=== PATIENT | male | born 1945 | race Caucasian/White ===

== ENCOUNTER 2017-12-07 15:00 | Outpatient (RCR) | payer OTHER, SELFPAY ==
--- NOTE | 2017-11-17 17:03 | HP.PTEVAL_ITS ---
Patient's Visit Information ADELAIDA ROJAS is a 72 year old M referred to Physical Therapy by Out of Town Doctor GHANSHYAM with a diagnosis of CHRONIC NECK PAIN. C2-C5 FACET ARTHROPATHY. SEVERE C5-C7 DDD.. Date of Evaluation: 11/17/17 Physical Therapist: Love Demarco - Visit Plan Frequency: 2-3x /Week Duration: 4-6 Weeks Plan: THIS PATIENT APPEARS TO BE A GOOD CANDIDATE FOR DRY NEEDLING. DRY NEEDLING ASSESSMENT SCHEDULED WITH OZIEL NELSON DPT. THIS PATIENT ALSO APPEARS TO BE A GOOD CANDIDATE FOR A HOME CERVICAL TRACTION UNIT BUT RECOMMEND TRIAL OF MECHANICAL CERVICAL TRACTION IN CLINIC FIRST TO ASSESS RESPONSE AND APPROPRIATE SETTINGS FOR A HOME UNIT. TREATMENT TO ALSO INCLUDE ULTRASOUND, STM NEEDED, POSTURE CORRECTION/STRENGTHENING, INSTRUCTION IN APPROPRIATE BODY MECHANICS AND ACTIVITY MODIFICATIONS. CHESTER UE ROM, STRETCHING AND STRENGTHENING. HEP INSTRUCTION. PATIENT WILL BE OUT OF TOWN IN NOVEMBER. TRANSFER OF CARE TO OZIEL NELSON DPT AT THIS TIME. CASE CONFERENCE WITH OZIEL NELOSN TODAY. 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 TRAVEL ABOUT 50% OF THE TIME USUALY BY PLANE. TENNIS, SKIING, SAILIING, PHOTOGRAPY. Disability: NO. Present symptoms: CHESTER NECK PAIN R>L. Present since: ABOUT 9 MONTHS AGO. Pain Scale: WORST 6/10, LEAST 2/10. Currently: 2 /10. CONTINUING TO IMPROVE SLOWLY. Commenced as a result of: THINKS HE GOT TOO FAR BACK ON NECK ON PILATES EQUIPMENT BUT IT DIDN'T HURT AT THE TIME. Symptoms at onset: SAME. Worse: PROLONGED READING, LOOKING AT COMPUTER FOR PROLONGED PERIOD OF TIME. TURNING WRONG IN BED, TURNING NECK DRIVING. Better: ERECT POSTURE. CHANGING POSITION OF NECK. SLEEPIING WITH HEATING PAD SOMETIMES. Disturbed sleep: A LITTLE BIT BUT GETTING BETTER. Previous history /Previous treatment: NO PRIOR HISTORY OF NECK PAIN OR TREATMENTS INCLUDING NO CHIRO, NO SX AND NO INJECTIONS. ABOUT 6 OR 7 NECK TREATMENTS BY CHIROPRACTOR THAT HELPED A LITTLE BIT BUT THEN STOPPED HELPING. HAS ALSO HAD MASSAGE THERAPY WHICH HAS HELPED. Dizziness: NO. Tinnitis: NO. Nausea: NO. Difficulty Swollowing: NO. Gait: NORMAL. Accidents: NO. Unexplained weight loss: NO. Imaging: LAST WEEK HAD CERVICAL X-RAYS OUT STATE - SEE MD DIAGNOSIS. PMH: SCOLIOSIS. *PACEMAKER* ON BLOOD THINNER. PROSTATE CANCER DX' D 3 YEARS AGO AND TREATED WITH RADIOACTIVE SEEDS - SOME URINARY DYSFUCNTION. HIGH CHOLESTEROL. TREATED RECENTLY FOR BLOOD INFECTION - HAS CLEARED UP BUT WAS HOSPITALIZED X 5 DAYS JUN 2017. - Objective Sitting Posture: POOR. FORWARD HEAD AND ROUNDED SHOULDERS. Active Correction of posture: BETTER. Other Observations: INDEP GAIT INTO PT WITHOUT ANY ASSISTIVE DEVICES. INDEP TRANSFERS SIT TO STAND AND REVERSE. ALSO INDEP SIT TO SUPINE AND REVERSE. Motor deficit: CHESTER UE'S GROSSLY 5/5 WITH MMT'ING IN AVAILABLE ROM. 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 PATIENT IS RIGHT HAND DOMINANT. Sensory deficit: CHESTER UE LIGHT TOUCH SENSATION IS INTACT AND SYMMETRICAL. ROM deficit: CHESTER UE ROM WFL BUT WITH APPROXIMATELY 20% ROM DECREASE IN SHOULDERS. Reflexes: CHESTER UE'S 2/2. Dural Signs: NEGATIVE CHESTER UE'S. Cervical Mvmt Loss: Flex: NIL. Pro: NIL. Ext: BRITTNY. Ret: BRITTNY. RSB: MOD. LSB: BRITTNY. R Rot: MOD. L Rot: MOD BUT MORE RESTRICTED THAN LEFT ROTATION. Postural strength: FAIR. Palpation: NO ACUTE TENDERNESS WITH PALPATION OF CERVICAL SPINE OR UPPER THORACIC SPINE. HE HAS INCREASED MUSCLE TONE/GUARDING OF CHESTER CERVICAL MUSCULATURE. OTHER: CERVICAL DISTRACTION TESTING RESULTS IN IMMEDIATE REPORTS OF DECREASED PAIN/STIFFNESS IN NECK AND DOES NOT PROVOKE ANY UE SX'S. THIS PATIENT IS VERY PLEASANT AND COOPERATIVE TO WORK WITH. - Goals Goal 1:: DECREASE C/O NECK PAIN Goal Time Frame: 4-6 Weeks Goal 2:: IMPROVE WORK (COMPUTER), PERSONAL CARE, READING, DRIVING AND RECREATIONAL FUNCTION. Goal Time Frame: 4-6 Weeks Goal 3:: INSTRUCT IN PROPHYLAXIS Goal Time Frame: 4-6 Weeks - Rehabilitation Potential Rehabilitation Potential: Good - Anticipated Interventions Patient/Client Instruction: Educate patient on: Condition, Plan of Care, Risk Factors, Benefits of Fitness Program For the Purpose of:: To improve self management Therapeutic Exercise to Include: Strength training, Body mechanics, Postural training, Flexibilty training, Active ROM, Scapular Strength/Stabilization For the Purpose of:: To improve ability of physical actions for home/community/ work/leisure Manual Therapy Techniques to Include: Functional dry needling, Soft tissue mobilization For the Purpose of:: To decrease pain, To decrease swelling/inflammation, To increase ROM Ultrasound (thermal/non thermal): Yes Intermittent cervical traction: Yes - STARTING WITH 15 TO 16 LBS TOLERATED. 8 LBS OFF. 45 SEC ON/30 SEC OFF. For the Purpose of:: To decrease pain, To decrease swelling/inflammation, To increase ROM Thank you for the opportunity to evaluate your patient. For Medicare and Medicare HMO plans, please review the plan of care and approve it. It will need to be FAXED BACK to us at [phone] for Medicare purposes. Please let me know if there are questions or concerns regarding this plan of care. Physician Signature: Date:
--- NOTE | 2017-12-07 15:57 | HP.PTREVAL_ITS ---
MICHELE GRANADOS, It has been my pleasure to treat ADELAIDA ROJAS over the last 9 visits for CHRONIC NECK PAIN. C2-C5 FACET ARTHROPATHY. SEVERE C5-C7 DDD.. Please see the progress note below for an update on the physical therapy plan of care! Subjective: Patient feels that he has some tools to continue exercise and such on his own- he is traveling for 3 weeks so he will see what happens. Played tennis today- no problems in his neck Objective/Function: Patient was able to complete without incidence. No increase in s/s throughout session. hold until return from vacation Plan Plan: Hold Goals Goal 1:: DECREASE C/O NECK PAIN Goal Time Frame: 4-6 Weeks Goal Progress: Progressing Goal 2:: IMPROVE WORK (COMPUTER), PERSONAL CARE, READING, DRIVING AND RECREATIONAL FUNCTION. Goal Time Frame: 4-6 Weeks Goal Progress: Progressing Goal 3:: INSTRUCT IN PROPHYLAXIS Goal Time Frame: 4-6 Weeks Goal Progress: Progressing Anticipated Interventions Patient/Client Instruction: Educate patient on: Condition, Plan of Care, Risk Factors, Benefits of Fitness Program For the Purpose of:: To improve self management Therapeutic Exercise to Include: Strength training, Body mechanics, Postural training, Flexibilty training, Active ROM, Scapular Strength/Stabilization For the Purpose of:: To improve ability of physical actions for home/community/ work/leisure Manual Therapy Techniques to Include: Functional dry needling, Soft tissue mobilization For the Purpose of:: To decrease pain, To decrease swelling/inflammation, To increase ROM Ultrasound (thermal/non thermal): Yes Intermittent cervical traction: Yes - STARTING WITH 15 TO 16 LBS TOLERATED. 8 LBS OFF. 45 SEC ON/30 SEC OFF. For the Purpose of:: To decrease pain, To decrease swelling/inflammation, To increase ROM Please do not hesitate to contact me at [phone] by phone or Fax: if you have questions or concerns regarding this new plan of care! Sincerely, Ariella Telles
--- NOTE | 2018-05-24 11:17 | HP.PT.NRP ---
HP - Discharge Summary (1) - Patient Information ADELAIDA ROJAS was seen in my office for initial evaluation on 11/17/17. The following Plan of Care was established for this patient: Initial Frequency: 2-3x /Week Initial Duration: 4-6 Weeks - Anticipated Interventions Patient/Client Instruction: Educate patient on: Condition, Plan of Care, Risk Factors, Benefits of Fitness Program For the Purpose of:: To improve self management Therapeutic Exercise to Include: Strength training, Body mechanics, Postural training, Flexibilty training, Active ROM, Scapular Strength/Stabilization For the Purpose of:: To improve ability of physical actions for home/community/work/leisure Manual Therapy Techniques to Include: Functional dry needling, Soft tissue mobilization For the Purpose of:: To decrease pain, To decrease swelling/inflammation, To increase ROM Ultrasound (thermal/non thermal): Yes Intermittent cervical traction: Yes - STARTING WITH 15 TO 16 LBS TOLERATED. 8 LBS OFF. 45 SEC ON/30 SEC OFF. For the Purpose of:: To decrease pain, To decrease swelling/inflammation, To increase ROM This patient was last seen in our office . Pertinent comments regarding their Physical therapy will appear below: d/c- new V# At this point I will be discontinuing this patient from physical therapy. I would be happy to see this patient again in the future if found appropriate by the physician. Thank you! Ariella Telles
== END 2017-12-07 19:00 | disposition home or self-care (01) ==
LOC: PT 15:00
PROVIDERS: Family Provider Family Medicine; PCP Family Medicine
DX: M50.322 Other cervical disc degeneration at C5-C6 level (principal); M46.92 Unspecified inflammatory spondylopathy, cervical region
CPT/HCPCS: 97012; 97035; 97110; 97140; 97162; 97530

== ENCOUNTER 2018-04-18 09:00 | Outpatient (RCR) | payer OTHER, SELFPAY ==
--- NOTE | 2018-03-28 08:33 | HP.PTEVAL ---
Patient's Visit Information ADELAIDA ROJAS is a 72 year old M referred to Physical Therapy by Hany oRbins MD with a diagnosis of LBP. Date of Evaluation: 03/28/18 Physical Therapist: Ariella Telles - Visit Plan Frequency: 2x /Week Duration: 2 Weeks Plan: Focus on core s/s and dry needling as modality - Subjective Subjective: Patient reports having scoliosis and has episodic issues for decades- twist it or step down funny and it goes out- has been able to managae- back brace while skiing- If he can get ice on it right away. the pain is always the lower right side. Has had healthcare science specialist which helps a lot. About 5 weeks ago he was on the boat he was crawling around and twisting- felt no sudden pain but had it the next day. Had massages and saw Dr. Renner 2x last apt was about 3 weeks ago. Can't stand very long without right sided back pain and quad pain. Was doing exercises (stretching) and felt something give and started to get better but is all the way better. Has gotten better in the past week. Played tennis for 90 minutes yesterday and had little pain. Describes the pain as dull and achy- does not radiate past the knee. Has not had recent x-rays. Mild numbness that comes and goes. 2 weeks ago he could not stand for more than 5 min without pain but now he does not have a problem. Iced after tennis yesterday- laying on his back. Has more pain in the hours afterwards. Feels more stiffness- Is currently doing piriformis stretch on his back 30 sec x 3 which helps to move things around. Feels that he needs to get stronger. Feels he is 75% through this flareup. No N/T in the toes. Active- very- tennis, boating, skiing, etc. PMH: SCOLIOSIS. *PACEMAKER* ON BLOOD THINNER. PROSTATE CANCER DX'D 3 YEARS AGO AND TREATED WITH RADIOACTIVE SEEDS - SOME URINARY DYSFUCNTION. HIGH CHOLESTEROL. TREATED RECENTLY FOR BLOOD INFECTION - HAS CLEARED UP BUT WAS HOSPITALIZED X 5 DAYS JUN 2017. (per previous evaluation by PT GIN-NO CHANGES PER PT REPORT) - Objective Posture: FH, RS- can correct but does not maintain- sitting mild slumping in chair. Observation: scoliotic curve of the spine-. Standing lumbar ROM: flexion: hands to knees- secondary to tight hamstrings, extn: decreased by 50%, SB: WFL, Rotation: WFL- Hip/Knee/ankle: WNL. Strength: Ankle/Knee: 5/5, Hip: 4+/5 throughout- Core: fair minus. Flexibility: HS: severe, gastroc: moderate. Palpation: tender along right paraspinals. Sensation/Reflex: wnl. Special Test: Barbara:negative - Goals Goal 1:: Patient will be I with HEP and progression Goal Time Frame: 4-6 Weeks Goal 2:: Patient will maintain proper posture t/o tx session to demo increased core s/s Goal Time Frame: 4-6 Weeks Goal 3:: Patient will report 0/10 pain for 1 week Goal Time Frame: 4-6 Weeks - Rehabilitation Potential Physical Therapy Diagnosis: Patient presents wtih hypomobility- he has decreased ROM, core s/s and muscular endurance leading to poor posture and increased pain Rehabilitation Potential: Fair - Anticipated Interventions Patient/Client Instruction: Educate patient on: Benefits of Fitness Program For the Purpose of:: To increase tolerance to activity/condition/position Therapeutic Exercise to Include: Strength training, Endurance training, Balance training, Agility training, Body mechanics, Postural training, Flexibilty training, Dynamic Lumbar Stabilization For the Purpose of:: To improve muscle performance and motor function Manual Therapy Techniques to Include: Functional dry needling Thank you for the opportunity to evaluate your patient. For Medicare and Medicare HMO plans, please review the plan of care and approve it. It will need to be FAXED BACK to us at [phone] for Medicare purposes. Please let me know if there are questions or concerns regarding this plan of care. Physician Signature: Date:
--- NOTE | 2018-09-21 09:03 | HP.PT.NRP ---
HP - Discharge Summary (1) - Patient Information ADELAIDA ROJAS was seen in my office for initial evaluation on 03/28/18. The following Plan of Care was established for this patient: Initial Frequency: 2x /Week Initial Duration: 2 Weeks - Anticipated Interventions Patient/Client Instruction: Educate patient on: Benefits of Fitness Program For the Purpose of:: To increase tolerance to activity/condition/position Therapeutic Exercise to Include: Strength training, Endurance training, Balance training, Agility training, Body mechanics, Postural training, Flexibilty training, Dynamic Lumbar Stabilization For the Purpose of:: To improve muscle performance and motor function Manual Therapy Techniques to Include: Functional dry needling This patient was last seen in our office . Pertinent comments regarding their Physical therapy will appear below: Patient is appropriate for d/c At this point I will be discontinuing this patient from physical therapy. I would be happy to see this patient again in the future if found appropriate by the physician. Thank you! Ariella Telles DPT
== END 2018-04-18 19:00 | disposition home or self-care (01) ==
LOC: PT 09:00
PROVIDERS: Family Provider Family Medicine; PCP Family Medicine; Visit Provider Family Medicine
DX: M54.41 Lumbago with sciatica, right side (principal)
CPT/HCPCS: 97110; 97140; 97161; 97530

== ENCOUNTER 2018-12-20 15:30 | Outpatient (RCR) | payer OTHER, SELFPAY ==
--- NOTE | 2018-12-02 15:35 | HP.PTEVAL ---
Patient's Visit Information ADELAIDA ROJAS is a 73 year old M referred to Physical Therapy by RADHA PABON with a diagnosis of Lumbar spondylosis. Date of Evaluation: 12/02/18 Physical Therapist: Matthew Ware, PT, CYNTHIA, SCS, CSCS - Visit Plan Frequency: 2x /Week Duration: 3 Weeks Plan: 2xweek for 3 weeks. patient will be traveling extensively - Subjective Findings: I started to have low back pain about 8 months ago and saw Ariella who did dry needling. My most recent flair up was about 3 months and I was in [place] so I saw Dr Mullen's PA. She took xrays and felt I had somme degenrative changes from my scoloisis. I've been in [place] for a couple of weeks and the therapist there gave me some exercise that have seemed to help - Objective Left LLD 1/4 left side bending right rotation for scolosis. Negatice tensions signs with SLR or slump. DTR wfls except r achilles appear down at 2/3 compared to left. No signifcant weakness noted - Goals Goal 1:: Understanding the rotation and compression secondary to his scolosis. Goal Time Frame: 1 Week Goal 2:: Return demo HEP Goal Time Frame: 1 Week Goal 3:: Initiate a dynamic stabilzation program Goal Time Frame: 2-4 Weeks Goal 4:: Place heel lift in left shoe - Rehabilitation Potential Physical Therapy Diagnosis: Scolosis with R referral L2-3 thigh region Rehabilitation Potential: Good - Anticipated Interventions Patient/Client Instruction: Educate patient on: Condition, Plan of Care For the Purpose of:: To decrease pain, To increase ROM, To improve ability to perform ADL's Therapeutic Exercise to Include: Strength training, Endurance training, Body mechanics, Postural training, Flexibilty training For the Purpose of:: To decrease pain, To decrease swelling/inflammation, To increase ROM, To improve ability to perform ADL's Manual Therapy Techniques to Include: Mobilization For the Purpose of:: To increase ROM Ultrasound (thermal/non thermal): Yes Pelvic traction supine: Yes For the Purpose of:: To increase flexibility/ROM Thank you for the opportunity to evaluate your patient. For Medicare and Medicare HMO plans, please review the plan of care and approve it. It will need to be FAXED BACK to us at [phone] for Medicare purposes. For Medicare only, by signing this I certify the plan of care. Please let me know if there are questions or concerns regarding this plan of care. Physician Signature: Date:
== END 2018-12-20 19:00 | disposition home or self-care (01) ==
LOC: PT 15:30
PROVIDERS: Family Provider Family Medicine; PCP Family Medicine
DX: M47.896 Other spondylosis, lumbar region (principal)
CPT/HCPCS: 97035; 97110; 97162

== ENCOUNTER 2019-09-15 08:26 | Day surgery (SDC) | payer OTHER, SELFPAY ==
--- NOTE | 2019-07-18 05:55 | HP_ITS ---
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 Is patient in pain?: No Allergies No Known Allergies Allergy (Verified 07/18/19 14:50) Medications apixaban 5 mg tablet 5 mg PO BID 09/16/17 [History Confirmed 07/18/19] metoprolol succinate ER 100 mg tablet,extended release 24 hr 100 mg PO .QD tab 09/16/17 [History Confirmed 07/18/19] mirabegron ER 25 mg tablet,extended release 24 hr 25 mg PO QDAY 09/16/17 [History Confirmed 07/18/19] pantoprazole 40 mg tablet,delayed release 40 mg PO QDAY 09/16/17 [History Confirmed 07/18/19] fluticasone propionate 50 mcg/actuation nasal spray,suspension 50 mcg INTRANASAL QDAY PRN g 09/22/17 [History Confirmed 07/18/19] lutein 20 mg capsule 20 mg PO .QOD cap 09/22/17 [History Confirmed 07/18/19] tamsulosin 0.4 mg capsule 0.4 mg PO QDAY cap 09/22/17 [History Confirmed 07/18/19] tadalafil 5 mg tablet 5 mg PO QDAY tab 04/13/18 [History Confirmed 07/18/19] rosuvastatin 5 mg tablet 5 mg PO .M/W/F tab 03/16/19 [History Confirmed 07/18/19] [facility] Medical History Stenosis of left carotid artery (Chronic) Tachy-garth syndrome (Chronic) Hyperlipidemia (Chronic) Paroxysmal atrial fibrillation (Chronic) Right bundle branch block (Chronic) GERD (gastroesophageal reflux disease) (Acute) Mccallum esophagus (Chronic) Obstructive sleep apnea (Chronic) Prostate cancer (Chronic) Bacteremia due to Enterococcus (Resolved ~07/10/17) Surgical History Presence of cardiac pacemaker (Chronic 07/14/13) Social History (Updated 07/18/19 @ 18:01 by Hair Kate MD) Smoking Status: Never smoker alcohol intake: current alcohol intake frequency: holidays/special occasions only HPI HPI HPI: ADELAIDA ROJAS, is a 74 M who presents to the office today for HPI HPI Surgical H&P: Yes HPI: ADELAIDA ROJAS, is a 74 M who presents to the office today for surgical consultation regarding a esophagogastroduodenoscopy and follow-up of Mccallum's esophagus. The patient is referred by Dr. Hany Robins and Lainey Diaz CNP and a written copy of my surgical consult recommendations will be returned to them. The patient states that he has known that he has had Mccallum's for at least 10 to 12 years. He has been on pantoprazole the entire time. The patient states that he is up-to-date with his colonoscopy. His most recent upper endoscopy was August 13, [address] Rose.. Short segment Mccallum's was identified biopsies. A few fundic gland polyps identified. The duodenum was felt to be normal. The distal esophagus was consistent with Mccallum's negative for dysplasia. Of interest is that the patient has now been on pantoprazole for an extended period of time. There is a suggestion that he has a more silent type of reflux. He does have some hoarseness but he feels that secondary to sinus problems. He still is physically very active and plays tennis and snow skis. He does have a pacemaker in place. He is on Eliquis anticoagulation for paroxysmal atrial flutter. He has also had non-sustained supraventricular tachycardia He has a mild degree of renal insufficiency. He denies chest pain. No shortness of breath. No acute change of bowel habits. No bright red blood per rectum or melena. No abdominal pain. Habits are negative for tobacco. He is on Eliquis twice daily. ROS General General: No weight change, appetite, fatigue, colon cancer, breast cancer or weakness HEENT HEENT: No difficulty swallowing, eye injury, eye surgery, swollen glands or hoarseness Endo Endocrine: No thyroid disease, diabetes mellitus, thyroid cancer, Hair loss, heat intolerance or cold intolerance Skin Skin: No rash or changing moles Breast Breast: No left breast lump, right breast lump, nipple discharge, breast pain, abnormal mammogram, abnormal US or breast enlargement Musc Musculoskeletal: No back problems, arthritis, rheumatoid arthritis, gout or joint pain Cardio Cardiovascular: Yes pacemaker and atrial fibrillation; no murmur, heart disease, high blood pressure, heart attack, heart stent, palpitations, shortness of breat with exertion or chest pain Psych Psychiatric: No depression, anxiety or hearing voices Resp Respiratory: No shortness of breath, Yes sleep apnea, No cough, No COPD, No asthma, No emphysema, No wheezing Gastro Gastrointestinal: No abdominal pain, No nausea or vomiting, No diarrhea, No constipation, No blood in stool, No acid reflux, No hemorrhoids, No ulcers, No gallbladder problem, No black,tarry stools Missael Hematologic: Yes blood thinners, No blood disorders, No bleeding, No anemia, No blood clots Neuro Neurologic: No system reviewed and no additional complaints, except as docu, No as per HPI, No abnormal walking, No abnormal hearing, No abnormal movements, No abnormal speech, No behavioral changes, No burning sensations, No confusion, No seizure-like activity, No unsteadiness, No dizziness, No localized weakness, No frequent falls, No headache(s), No lack of coordination, No loss of vision, No memory loss, No numbness, No other visual disturbances, No radiating pain, No restless legs, No sensory deficit, No fainting, No tingling, No tremor(s), No weakness, No other Exam Const General: cooperative, healthy appearing, comfortable, no acute distress Nutritional Appearance: average body habitus Orientation: alert, awake, oriented x3 HENMT Head: normal to inspection Chest Chest palpation & inspection: normal inspection of the chest Breast Palpation: No nipple discharge Other: Left upper chest indwelling pacemaker Resp Effort & Inspection: normal respiratory effort Auscultation: clear to auscultation bilaterally Cardio Rate: regular rate Rhythm: regular rhythm Heart Sounds: no murmurs GI Other: Soft, nontender, normal bowel sounds, not expansile, Skin General: no rashes or lesions noted Neuro Cognition: normal cognition Extrem General: no calf tenderness bilaterally Psych Affect: normal affect Assessment & Plan Problems 1. History of Mccallum's esophagus Z87.19 Plan 74-year-old gentleman with a history of Mccallum's esophagus with no evidence of dysplasia. Ongoing proton pump inhibitor therapy for 10 to 12 years. Some suggestion of a degree of silent reflux. I am recommending to him a esophagogastroduodenoscopy with anticipated biopsies. I did discuss with him potential of placing a Stewart pH probe. I briefly discussed with him long-term concept of considering a surgical reflux procedure. I discussed with him current medical thoughts of weaning patients off of proton pump inhibitors. He has had an opportunity to ask and have questions answered. He is still working and has quite a busy schedule. He will notify us when he would like to proceed with the endoscopy. He will additionally notify us if he would like to have a pH probe placed at that time. We will need to have him hold his Eliquis for 48 hours prior to the endoscopy. I very much appreciate the kind opportunity of assisting with surgical care CC: Lainey Diaz CNP and Dr. Hany Kate M.D., F.A.C.S. Coding Level of Care Code 36584 Diagnoses History of Mccallum's esophagus Z87.19 07/18/19 180 <Electronically signed by Hair bonilla MD> Date _ Hair Kate MD History and physical reviewed with no changes.
[2019-07-18 14:51] VITALS: BMI 28.8
[2019-09-15 08:52] VITALS: BP 140/87; PULSE 55; RESP 16; TEMP 36.6; O2SAT 96; BMI 28.9
[2019-09-15] MEDS: Lactated Ringers 1,000 ML 100 ML IV (09:11)
--- NOTE | 2019-09-15 09:30 | EGD_PTH ---
PATIENT: ADELAIDA ROJAS LOC: EN U#:[id number] AGE/SX: 74/M ROOM: RE09/15/[address]: Dr. Hair Kate MD : 1945 BED: DIS: 09/15/2019 SPEC #: [id number] RECD: 09/15/19 11:28 STATUS: EDMUND IVETTE #: [id number] IRISH: 09/15/19 09:[address]: Hair Kate DEPT: SURGICAL PATHOLOGY RECD BY: Daiana Grider ENTERED: 09/15/19 11:56 SP TYPE: EGD BIOPSY OT DR: Dr. Hany Robins MD Tissues: A - Duodenum, NOS B - Gastric mucous membrane C - POLYP D - Esophagus, NOS Procedures: Special Stain Group II Surgery Specimen Level IV Alcian Blue/PAS (control) HEADER OPERATION: EGD ([facility] [place]) PRE-OP DIAGNOSIS: History Webster's esophagus TISSUE SUBMITTED: A. Duodenal biopsy, B. Antrum biopsy for H. pylori and path, C. Greater curvature polyp, D. Distal esophagus biopsy MICROSCOPIC DIAGNOSIS A. Duodenum, biopsy: Minimal nonspecific chronic inflammation. See comment. B. Gastric antrum, biopsy: Mild chronic gastritis. See comment. C. Gastric polyp, greater curvature, biopsy: Fundic gland polyp. D. Distal esophagus, biopsy: Gastroesophageal junctional mucosa with Webster's esophagus. No evidence of dysplasia. See comment. AM:ayesha 09/18/19 COMMENT A. There is no flattening of villi present. B. The results of immunohistochemistry for Helicobacter pylori will be reported separately ([id number]). D. Alcian blue/PAS stain with matched control supports the above diagnosis. Immunohistochemistry ([id number]) supports the above diagnosis. MICROSCOPIC DESCRIPTION Slides are reviewed. GROSS DESCRIPTION A - Received in fixative is one container labeled with the patient's name and designated duodenal biopsy. The specimen consists of one irregular fragment of light pinto soft tissue that measures 0.3 x 0.3 x 0.1 cm. The specimen is totally submitted in one cassette. B - Received in fixative is one container labeled with the patient's name and designated antral biopsy. The specimen consists of multiple irregular fragments of light pinto soft tissue that in aggregate measure 0.5 x 0.3 x 0.1 cm. The specimen is totally submitted in one cassette. C - Received in fixative is one container labeled with the patient's name and designated greater curvature polyp. The specimen consists of one irregular fragment of light pinto soft tissue that measures 0.5 x 0.3 x 0.1 cm. The specimen is totally submitted in one cassette. D - Received in fixative is one container labeled with the patient's name and designated distal esophagus biopsy. The specimen consists of multiple irregular fragments of light pinto soft tissue that in aggregate measure 2 x 1 x 0.1 cm. The specimen is totally submitted in one cassette. / SJ:ayesha 09/15/19 TC: CPT: 75672 x4, 48214
--- NOTE | 2019-09-15 09:30 | IMM_PTH ---
PATIENT: ADELAIDA ROJAS LOC: EN U#:[id number] AGE/SX: 74/M ROOM: RE09/15/[address]: Dr. Hair Kate MD : 1945 BED: DIS: 09/15/2019 SPEC #: [id number] RECD: 09/15/19 13:33 STATUS: EDMUND REQ #: [id number] IRISH: 09/15/19 09:[address]: Hair Kate DEPT: IMMUNOHISTOCHEMISTRY RECD BY: Haley Bruno ENTERED: 09/15/19 13:33 SP TYPE: IMMUNO OTHR DR: Dr. Hany Robins MD Tissues: B - Stomach, NOS D - Esophagus, NOS Procedures: H Pylori (initial) P53 (initial) KI-67 (add) PHYSICIAN & INSTITUTION [place] [address] SPECIMEN INFORMATION: Tissue Source: B - Antrum biopsy, D - Distal esophagus biopsy Clinical Info: History Webster's esophagus Specimen Number: [id number] B & D CPT code: 38033 x2, 74437 METHODOLOGY: Deparaffinized sections of prefer/formalin-fixed tissue or PAP/DQ stained slides are incubated with monoclonal/polyclonal antibodies/oligonucleotide probes. Localization is made via biotin free immunoperoxidase method. Appropriate controls are performed and reacted as expected. Results on target cell population are indicated in the following table: RESULTS: ANTIBODY / CLONE RESULT Block B H Pylori (polyclonal) negative Block D P53 (DO-7) negative Ki-67 (30-9) positive, low These tests were developed and their performance characteristics determined by [facility]. They may not have been cleared or approved by the U.S. Food and Drug Administration. The FDA has determined that such clearance or approval is not necessary. The above immunohistochemical/dualISH markers are ordered and reviewed by the pathologist. INTERPRETATION: B. Antrum biopsy: Negative for Helicobacter pylori organisms. D. Distal esophagus, biopsy: No evidence of dysplasia. AM:ayesha 09/19/19
[2019-09-15 10:10] VITALS: BP 140/87; BP 88/51; PULSE 50; RESP 16; TEMP 36.1; O2SAT 94
[2019-09-15 10:15] VITALS: BP 140/87; BP 97/60; PULSE 52; RESP 16; O2SAT 94
[2019-09-15 10:20] VITALS: BP 108/60; BP 140/87; PULSE 59; RESP 16; O2SAT 96
[2019-09-15 10:25] VITALS: BP 120/82; BP 140/87; PULSE 60; RESP 16; TEMP 36.1; O2SAT 97
[2019-09-15 10:53] VITALS: BP 140/87
--- NOTE | 2019-09-18 14:18 | OP.EGD_ITS ---
Patient Name: Hawk Sandoval Procedure Date: 09/15/2019 9:28 AM Date of : 1945 Age: 74 Procedure: Upper GI endoscopy Indications: Surveillance for malignancy due to personal history of Webster's esophagus Providers: Hair Kate MD Referring MD: Hany Robins MD Medicines: See the Anesthesia note for documentation of the administered medications Complications: No immediate complications. Procedure: Pre-Anesthesia Assessment: - Prior to the procedure, a History and Physical was performed, and patient medications and allergies were reviewed. The patient's tolerance of previous anesthesia was also reviewed. The risks and benefits of the procedure and the sedation options and risks were discussed with the patient. All questions were answered, and informed consent was obtained. Prior Anticoagulants: The patient has taken Eliquis (apixaban), last dose was 2 days prior to procedure. ASA Grade Assessment: II - A patient with mild systemic disease. After reviewing the risks and benefits, the patient was deemed in satisfactory condition to undergo the procedure. After obtaining informed consent, the endoscope was passed under direct vision. Throughout the procedure, the patient's blood pressure, pulse, and oxygen saturations were monitored continuously. The gastroscope was introduced through the mouth, and advanced to the second part of duodenum. The upper GI endoscopy was accomplished without difficulty. The patient tolerated the procedure well. Scope In: 9:45:52 AM Scope Out: 10:05:40 AM Total Procedure Duration Time 0 hours 19 minutes 48 seconds Findings: Diffuse mildly erythematous mucosa without bleeding was found in the gastric antrum. Biopsies were taken with a cold forceps for histology. Multiple sessile polyps with no bleeding and no stigmata of recent bleeding were found in the entire examined stomach. The polyp was removed with a cold biopsy forceps. Resection and retrieval were complete. The examined duodenum was normal. Biopsies were taken with a cold forceps for histology. A medium-sized hiatal hernia was present. The Z-line was irregular and was found 40 cm from the incisors. The GRIFFIN capsule with delivery system was introduced through the mouth and advanced into the esophagus, such that the GRIFFIN pH capsule was positioned 32 cm from the incisors, which was 6 cm proximal to the GE junction. The GRIFFIN pH capsule was then deployed and attached to the esophageal mucosa. The delivery system was then withdrawn. Endoscopy was utilized for probe placement and diagnostic evaluation. Impression: - Erythematous mucosa in the antrum. Biopsied. - Multiple gastric polyps. Resected and retrieved. - Normal examined duodenum. Biopsied. - Medium-sized hiatal hernia. - Z-line irregular, 40 cm from the incisors. - The GRIFFIN pH capsule was deployed. Recommendation: - Discharge patient to home. - Resume previous diet. - Resume Eliquis (apixaban) at prior dose in 2 days. - Return to my office in 1 week. Procedure Code(s): --- Professional --- 12029, Esophagogastroduodenoscopy, flexible, transoral; with biopsy, single or multiple 35870, Esophagus, gastroesophageal reflux test; with mucosal attached telemetry pH electrode placement, recording, analysis and interpretation Diagnosis Code(s): --- Professional --- K31.89, Other diseases of stomach and duodenum K31.7, Polyp of stomach and duodenum K22.70, Webster's esophagus without dysplasia K44.9, Diaphragmatic hernia without obstruction or gangrene K22.8, Other specified diseases of esophagus CPT copyright 2017 [employer]. All rights reserved. The codes documented in this report are preliminary and upon construction job cost estimator review may be revised to meet current compliance requirements. Hair Kate MD 09/15/2019 10:16:09 AM This report has been signed electronically. Number of Addenda: 0 Note Initiated On: 09/15/2019 9:28 AM
--- NOTE | 2019-09-18 14:18 | OP.CCLET_ITS ---
09/18/2019 Hany Robins MD Re : Upper GI endoscopy procedure for Hawk Sandoval Dear Dr. Robins This procedure was performed on Sunday, September 15, 2019. My impressions and recommendations are as follows: Impressions : - Erythematous mucosa in the antrum. Biopsied. - Multiple gastric polyps. Resected and retrieved. - Normal examined duodenum. Biopsied. - Medium-sized hiatal hernia. - Z-line irregular, 40 cm from the incisors. - The GRIFFIN pH capsule was deployed. Recommendations : - Discharge patient to home. - Resume previous diet. - Resume Eliquis (apixaban) at prior dose in 2 days. - Return to my office in 1 week. My findings are described in the full procedure note, which is enclosed. If I can be of further assistance, please feel free to contact me at Doctor phone number(s): Work: . Sincerely, Hair Kate MD 09/15/2019 10:16:09 AM This report has been signed electronically.
== END 2019-09-15 11:19 | disposition home or self-care (01) ==
LOC: EN 08:28 → AC 08:29
PROVIDERS: Family Provider Family Medicine; PCP Family Medicine; Referring Provider Family Medicine; Visit Provider Surgery
PROC: (CPT 43239; principal; 2019-09-15 09:25)
DX: Z12.9 Encounter for screening for malignant neoplasm, site unspecified (principal); K31.7 Polyp of stomach and duodenum; K29.50 Unspecified chronic gastritis without bleeding; K21.9 Gastro-esophageal reflux disease without esophagitis; K31.89 Other diseases of stomach and duodenum; K44.9 Diaphragmatic hernia without obstruction or gangrene; K22.70 Barrett's esophagus without dysplasia; K22.8 Other specified diseases of esophagus; I47.1 Supraventricular tachycardia; I48.0 Paroxysmal atrial fibrillation; E78.5 Hyperlipidemia, unspecified; G47.33 Obstructive sleep apnea (adult) (pediatric); Z79.01 Long term (current) use of anticoagulants; Z79.899 Other long term (current) drug therapy; Z87.19 Personal history of other diseases of the digestive system; Z95.0 Presence of cardiac pacemaker
CPT/HCPCS: 43239; 91035; 88305; 88313; 88341; 88342; J7120

== ENCOUNTER 2020-06-04 10:55 | Outpatient (CLI) | payer OTHER, SELFPAY ==
[2020-06-03 13:44] VITALS: BMI 29.7
[2020-06-03 16:32] LABS: Anion Gap 4 (5-15); BUN 16 mg/dL (7-18); Calcium,Total 9.2 mg/dL (8.5-10.1); Chloride 106 mmol/L (98-107); Creatinine, Serum 1.46 mg/dL (0.70-1.30); EST Glomerular Filtration Rate 50 mL/min (>60); Est Glom Filt Rate - Afr Amer 61 mL/min (>60); Glucose 116 mg/dL (74-106); Sodium Level 139 mmol/L (136-145)
[2020-06-04 07:02] VITALS: BMI 29.7
--- NOTE | 2020-06-04 10:57 | ECHOTEE_ITS ---
Reason For Study: AFIB Medication SHANICE probe 6VT-D (SN [id number]) passed without difficulty. No complications were noted. Cetacaine Topical [place] given X4 orally. Versed 2 mg given slow IVP. Fentanyl 50 mcg given slow IVP. Performed a rapid injection of agitated mix of 9 cc saline and 1cc air to assess for atrial septal defect. Left Ventricle Normal LV size. Left ventricular systolic function is normal. The estimated ejection fraction is 60 %. No regional wall motion abnormalities noted. Right Ventricle Normal RV size. Normal systolic function. Atria Bubble contrast study negative for right to left interatrial shunt. Normal left atrium. No thrombus is detected in the left atrial appendage. Normal right atrium. Mitral Valve Normal mitral valve. Mild (1+) eccentric mitral valve insufficiency. Tricuspid Valve Normal tricuspid valve. Mild tricuspid valve insufficiency. Aortic Valve Trisinus/trileaflet aortic valve. Mild (1+) aortic valve insufficiency. Pulmonic Valve Normal pulmonic valve. Vessels Normal aortic root. Normal arch. The pulmonary artery is normal size. Pericardium No pericardial effusion. Interpretation Summary Normal LV size. Left ventricular systolic function is normal. The estimated ejection fraction is 60 %. Normal left atrium. No thrombus is detected in the left atrial appendage. Ordering Physician: Refugio Raygoza Referring Physician: ANSON LICEA Performed By: Genevieve Cai, RDCS, RVT
--- NOTE | 2020-06-04 12:53 | PCM.OP.PRO ---
Procedure Report Date of Procedure: 06/04/20 CONSCIOUS SEDATION REPORT DATE OF SERVICE: June 04, 2020 BRIEF HISTORY OF PRESENT ILLNESS: The patient is a 75-year-old male who presented to [facility] for an elective outpatient cardioversion due to underlying atrial fibrillation. Transesophageal echocardiogram was completed prior to the procedure today which revealed an ejection fraction of approximately 65%. The patient is systemically anticoagulated on Eliquis. He denies any previous anesthetic complications. He does have a known history of obstructive sleep apnea, for which he reports compliance with the use of nocturnal CPAP therapy. PHYSICAL EXAMINATION: VITAL SIGNS: Reviewed and were acceptable. GENERAL: The patient is a male, in no apparent distress, speaking in full sentences. HEENT: Normocephalic, atraumatic. Mucous membranes are moist and pink. Good mouth opening noted. Trachea is midline. CHEST: S1, S2 irregularly irregular. No murmurs, rubs or gallops were noted. LUNGS: Clear to auscultation bilaterally without appreciable wheezes, rales or rhonchi. ABDOMEN: Soft, nontender, nondistended. Positive bowel sounds. EXTREMITIES: There is no clubbing, cyanosis or edema. ASA Class: II DESCRIPTION OF PROCEDURE: After confirmation of informed consent, the patient's anesthesia plan was reviewed in detail. Propofol was chosen. Risks and benefits were reviewed and the patient agreed to proceed. At 1222, the patient was given 40 mg of propofol. The patient achieved an appropriate level of sedation and was given a 200 joule synchronized cardioversion by Dr. Raygoza at the bedside. This was successful in achieving normal sinus rhythm. The patient was monitored until 1233, at which time he reached his baseline mental status and function. The patient tolerated the procedure well. COMPLICATIONS: None ESTIMATED BLOOD LOSS: None RECOMMENDATIONS: Okay to recover in usual fashion. 9xxxx: Other Procedure See Report - [id number]
--- NOTE | 2020-06-04 13:42 | CARDIOVERS ---
Cardioversion Cardioversion: Procedure: DC Cardioversion Indication: Persistent symptomatic atrial fibrillation flutter [] Procedure Note: The patient was brought to the cardiac catheterization lab in the postabsorptive nonsedated state. The patient was seen by [Tod of the critical care division] . Patient was noted to have normal global ejection fraction of [60 to 65%] and has been on therapeutic anticoagulation. This was determined by a transesophageal echocardiogram which demonstrated no evidence of left atrial appendage thrombus. Anterior posterior pads were applied. [200 J] of synchronized DC cardioversion energy were applied after the patient was administered 40 mg of intravenous propofol. The patient reverted to an atrial and ventricular paced rhythm. Subsequent EKG confirmed patient in sinus rhythm with occasional ventricular pacing. Patient tolerated the procedure well. Plan: Continue flecainide 100 mg twice a day Metoprolol 100 mg once a day] Continue anticoagulation with Eliquis for minimum of 1 month EKG in 1 week Above discussed with patient, spouse and Dr. Tj Guzman.
== END 2020-06-04 14:15 | disposition home or self-care (01) ==
LOC: CVS 10:57
PROVIDERS: PCP Student in an Organized Health Care Education/Training Program; Referring Provider Internal Medicine Cardiovascular Disease; Visit Provider Internal Medicine Cardiovascular Disease
DX: I48.0 Paroxysmal atrial fibrillation (principal); I48.19 Other persistent atrial fibrillation; I48.92 Unspecified atrial flutter; N18.9 Chronic kidney disease, unspecified; E78.5 Hyperlipidemia, unspecified; G47.33 Obstructive sleep apnea (adult) (pediatric); K21.9 Gastro-esophageal reflux disease without esophagitis; Z79.01 Long term (current) use of anticoagulants; Z79.899 Other long term (current) drug therapy
CPT/HCPCS: 36415; 80048; 92960; 93005; 93312; 93320; 93325; J7040

== ENCOUNTER 2020-09-10 09:00 | Outpatient (RCR) | payer OTHER, SELFPAY | END 2020-09-10 23:59 | LOC: IMMUN 09:00 | PROVIDERS: PCP Family Medicine; Visit Provider Family Medicine | DX: Z23 Encounter for immunization (principal) | CPT/HCPCS: 0011A; 0012A; 91301 ==

== ENCOUNTER → 2021-05-16 07:34 | Outpatient (CLI) | payer OTHER, SELFPAY ==
[2021-03-20 08:52] VITALS: BMI 29.8
--- NOTE | 2021-05-16 07:38 | ECHOD_ITS ---
Reason For Study: Afib/Flutter Procedure This was a 2D Doppler, Color Flow transthoracic echocardiogram. Exam performed in department. Left Ventricle Normal LV size. Left ventricular systolic function is normal. The estimated ejection fraction is 55 %. Stage 1 diastolic dysfunction. No regional wall motion abnormalities noted. Right Ventricle Normal RV size. ICD or pacer leads identified within the right ventricle. Normal systolic function. Atria Normal left atrium. Normal right atrium. Mitral Valve Normal mitral valve. Tricuspid Valve Normal tricuspid valve. Mild tricuspid valve insufficiency. Aortic Valve Trisinus/trileaflet aortic valve. Trivial aortic valve insufficiency. Pulmonic Valve Normal pulmonic valve. Great Vessels Normal aortic root. The pulmonary artery is normal size. Normal inferior vena cava. Pericardium/Pleural No pericardial effusion. MMode/2D Measurements & Calculations LVIDd: 4.6 cm IVSd: 1.4 cm LA dimension: 4.8 cm LVIDs: 2.8 cm LVPWd: 1.0 cm FS: 38.8 % LAV(MOD-bp): 63.4 ml LVAd ap4: 28.5 cm2 SV(MOD-sp4): 53.5 ml LAV(MOD-bp) Indexed: 30.6 ml/m2 LVLd ap4: 8.1 cm LAV(MOD-sp2): 62.9 ml EDV(MOD-sp4): 83.8 ml LAV(MOD-sp4): 61.2 ml EDV(sp4-el): 85.9 ml LVAs ap4: 15.9 cm2 LVLs ap4: 7.3 cm ESV(MOD-sp4): 30.3 ml ESV(sp4-el): 29.5 ml EF(MOD-sp4): 63.9 % EF(sp4-el): 65.7 % SV(sp4-el): 56.4 ml LA A4 area: 20.9 cm2 RA A4 area: 21.4 cm2 Time Measurements MV dec time: 0.32 sec Doppler Measurements & Calculations MV E max saul: 53.2 cm/sec Lat Peak E' Saul: 5.3 cm/sec Med Peak E' Saul: 4.6 cm/sec MV A max saul: 77.0 cm/sec E/E' lat: 10.1 E/E' med: 11.5 MV E/A: 0.69 MV V2 max: 83.3 cm/sec MV P1/2t max saul: 75.5 cm/sec Ao V2 max: 120.5 cm/sec MV max P.8 mmHg MV P1/2t: 133.0 msec Ao max P.8 mmHg MV V2 mean: 53.0 cm/sec MV mean P.3 mmHg MV dec slope: 166.3 cm/sec2 MV V2 VTI: 30.6 cm MVA(P1/2t): 1.7 cm2 AI max saul: 376.6 cm/sec LV V1 max: 111.0 cm/sec PA V2 max: 95.4 cm/sec AI max P.7 mmHg LV V1 max P.9 mmHg AI dec slope: 101.0 cm/sec2 AI P1/2t: 1092 msec TR max saul: 239.3 cm/sec TR max P.9 mmHg ECHO/Echo Complete Interpretation Summary Normal LV size. Left ventricular systolic function is normal. The estimated ejection fraction is 55 %. Trivial aortic valve insufficiency. Stage 1 diastolic dysfunction. ICD or pacer leads identified within the right ventricle. Ordering Physician: Refugio Raygoza Referring Physician: Jack Hameed Performed By: Lawrence Gross RCS
== END ==
PROVIDERS: PCP Student in an Organized Health Care Education/Training Program; Visit Provider Internal Medicine Cardiovascular Disease
DX: I48.0 Paroxysmal atrial fibrillation (principal); Z95.0 Presence of cardiac pacemaker
CPT/HCPCS: 93306

== ENCOUNTER 2022-09-25 10:32 | Day surgery (SDC) | payer OTHER, SELFPAY ==
[2022-09-24 15:02] VITALS: BMI 30.2
[2022-09-25 11:09] LABS: Anion Gap 6 (5-15); BUN 19 mg/dL (7-18); BUN/Creat Ratio 12.6 RATIO (10-20); Calcium,Total 9.5 mg/dL (8.5-10.1); Chloride 103 mmol/L (98-107); Creatinine, Serum 1.51 mg/dL (0.70-1.30); EST Glomerular Filtration Rate 48 mL/min (>60); Est Glom Filt Rate - Afr Amer 58 mL/min (>60); Estimated Creatinine Clearance 40.97 ml/min; Glucose 114 mg/dL (74-106); Potassium 4.9 mmol/L (3.5-5.1); Sodium Level 138 mmol/L (136-145)
--- NOTE | 2022-09-25 11:48 | CON.PCM.CA_ITS ---
Assessment & Plan Assessment/Plan (1) Paroxysmal atrial flutter: PLAN: He does have a history of paroxysmal atrial fibrillation flutter. He has been anticoagulated and the plan is for DC cardioversion. The risk benefits alternatives have been explained to him he understands and agrees to proceed. (2) Presence of cardiac pacemaker: PLAN: He is status post pacemaker implantation. His pacemaker will be interr ogated post DC cardioversion (3) Aortic stenosis: PLAN: He does have evidence of mild aortic stenosis. At this time we will not make any changes. (4) Non-ischemic cardiomyopathy: PLAN: He has a history of a cardiomyopathy which was likely tachycardia induced. His ejection fraction has returned to normal. Thank you for allowing me to participate in the care of your patient. Please don't hesitate to call if any issues arise. HPI Consult Data Date of Consult: 09/25/22 HPI Narrative HPI Narrative: ADELAIDA ROJAS, is a 77 M who presents for DC cardioversion.? He is a pleasant gentleman with a history of paroxysmal atrial fibrillation, history of ablation, tachybradycardia syndrome, status post pacemaker implantation with a [employer] DDDR T revision in 2012.? As you remember he had presented after he called in October of 2020 with what appeared to be atrial tachycardia and atrial flutter and it was noted that it was his device replacement time.? Due to the fact that we wanted to change the leads as well he went to [facility] where he had a cardioversion for atrial tachycardia and developed marked bradycardia and needed to have a temporary pacemaker inserted.? His pacemaker was changed out and it was determined that his ventricular lead was not functioning normally.? There was no venous access on the left side and so it was elected to put a new pacemaker on the right side with a new lead and to take the atrial lead on the left side and tunneled under the skin and abandoned the ventricular lead on the left side.? The procedure was performed and he had a Medtronic dual-chamber pacemaker implanted.? He has been doing quite well since then denying any chest pain or shortness of breath or paroxysmal nocturnal dyspnea he has had his pacemaker interrogation through our office and has been noted to be functioning well.? An echocardiogram that had been performed postprocedure had demonstrated an ejection fraction of almost 40%.? He was continued on guideline directed medical therapy and recently had a follow-up with Dr. Tj Guzman.? His pacemaker interrogation was noted to demonstrate normal pacemaker function a paced V sensed and his ejection fraction had improved to 63% with mild aortic stenosis. He however had remote interrogation and was noted to be in atrial fibrillation he was instructed to take extra metoprolol but he continued to be in atrial fibrillation flutter. After discussing with Dr. Tj Guzman it was decided that we should proceed with a DC cardioversion. His physical exam is significant for clear lung macias regular rate and rhythm and a 2/6 systolic murmur noted left sternal border.? [facility] Medical History Acute systolic (congestive) heart failure (11/11/20) Bacteremia due to Enterococcus (07/10/17) Chronic kidney disease (CKD) GERD (gastroesophageal reflux disease) HFrEF (heart failure with reduced ejection fraction) History of Webster's esophagus Hyperlipidemia Multiple premature ventricular complexes Non-ischemic cardiomyopathy Nonsustained paroxysmal supraventricular tachycardia Obstructive sleep apnea Paroxysmal atrial fibrillation Paroxysmal atrial flutter Persistent atrial fibrillation (05/22/20) Prostate cancer Right bundle branch block Second degree AV block, Mobitz type II Stenosis of left carotid artery Tachy-garth syndrome Home Medications cholecalciferol (vitamin D3) 50 mcg (2,000 unit) capsule 50 mcg PO DAILY 03/26/22 [History Last Taken Unknown] fluticasone propionate 50 mcg/actuation nasal spray,suspension 1 spray intranasal BID 03/26/22 [History Last Taken Unknown] furosemide 20 mg tablet 20 mg PO DAILY 03/26/22 [History Last Taken Unknown] lutein 20 mg capsule 20 mg PO DAILY 03/26/22 [History Last Taken Unknown] metoprolol succinate 100 mg tablet,extended release 24 hr 100 mg PO DAILY 03/26/22 [History Last Taken Unknown] mirabegron 25 mg tablet,extended release 24 hr 25 mg PO DAILY 03/26/22 [History Last Taken Unknown] pantoprazole 40 mg tablet,delayed release 40 mg PO DAILY 03/26/22 [History Last Taken Unknown] rosuvastatin 5 mg tablet 5 mg PO .M/W/F 03/26/22 [History Last Taken Unknown] tadalafil 5 mg tablet 5 mg PO DAILY 03/26/22 [History Last Taken Unknown] tamsulosin 0.4 mg capsule 0.4 mg PO DAILY 03/26/22 [History Last Taken Unknown] amlodipine 5 mg tablet See Rx Instructions .Route .COMPLEX #90 TABLETS 04/07/22 [Rx Last Taken Unknown] apixaban 5 mg tablet (Eliquis) See Rx Instructions .Route .COMPLEX #180 TABLETS 05/18/22 [Rx Last Taken 09/25/22] Allergy/AdvReac Type Severity Reaction Status Date / Time No Known Allergies Allergy Verified 03/20/21 08:53 Surgical History History of cardioversion (11/13/20) History of esophagogastroduodenoscopy (EGD) (08/2019) Presence of cardiac pacemaker (11/14/20) Social History Smoking Status: Never smoker alcohol intake: current alcohol intake frequency: holidays/special occasions only ROS Constitutional Constitutional: Denies fever(s) or weight loss Eyes Eyes: Reports systems reviewed and no addt'l complaints, except as documented ENT HEENT: Reports systems reviewed and no addt'l complaints, except as documented Cardiovascular Cardiovascular: Denies chest pain at rest, chest pain with activity, dyspnea at rest, dyspnea on exertion, edema, palpitations or paroxysmal nocturnal dyspnea Respiratory/Chest Respiratory/Chest: Denies dyspnea on exertion, productive cough, shortness of breath at rest or shortness of breath with exertion Gastrointestinal Gastrointestinal: Denies change in bowel habits, nausea, vomiting or weight changes Genitourinary Genitourinary: Denies difficulty urinating Musculoskeletal Musculoskeletal: Denies joint stiffness or muscle weakness Integumentary Integumentary: Denies lesions Neurologic Neurologic: Denies dizziness or syncope Psychiatric Psychiatric: Denies anxiety Endocrine Endocrinology: Denies excessive sweating or fatigue Hematologic/Lymphatic Hematologic/Lymphatic: Denies anemia Allergic/Immunologic Allergic/Immunologic: Denies seasonal rhinorrhea Physical Exam Const alert, oriented x3 and no apparent distress General Appearance: cooperative HEENT hearing grossly normal bilaterally Head and Scalp: atraumatic Eyes EOMs intact bilaterally Neck General: normal visual inspection Chest inspection of chest normal and palpation of chest normal Resp normal respiratory effort Auscultation: clear to auscultation bilaterally Cardio regular rate, regular rhythm, S1 normal heart sound and S2 normal heart sound Jugular Venous Distention: JVD GI normal to inspection, nondistended, normoactive bowel sounds Extremity normal capillary refill and no pedal edema Peripheral Pulses: Yes pulses 2+ throughout and femoral pulses present Skin no rashes or lesions noted Neuro oriented x3 and CN's II-XII intact bilaterally Psych Appearance: grossly normal and appropriate Risk Stratification Risk Stratification Applicable: No Objective Data Vital Signs: Weight: 205 lb Body Mass Index (BMI) 30.2 Lab / Micro Data Result Diagrams: 09/25/22 10:40 Labs: Laboratory Results - last 24 hr 09/25/22 10:40: Sodium 138, Potassium 4.9, Chloride 103, Carbon Dioxide 29.0, Anion Gap 6, BUN 19 H, Creatinine 1.51 H, Estim Creat Clear Calc 40.97, Est GFR (MDRD) Af Amer 58 L, Est GFR (MDRD) Non-Af 48 L, BUN/Creatinine Ratio 12.6, Glucose 114 H, Calcium 9.5 Cardiology Labs/Tests 09/25/22 10:40: Sodium 138, Potassium 4.9, Chloride 103, Carbon Dioxide 29.0, Anion Gap 6, BUN 19 H, Creatinine 1.51 H, Est GFR (MDRD) Af Amer 58 L, Est GFR (MDRD) Non-Af 48 L, BUN/Creatinine Ratio 12.6, Glucose 114 H, Calcium 9.5 Rhythm: EKG: ECHO: Stress Test: Cardiac Cath: PCI: CT Surgery: Holter monitor: EPS: PPM: CXR: Chest CT Scan:
--- NOTE | 2022-09-25 12:22 | PRO.PCM_ITS ---
Procedure Report Date of Procedure: 09/25/22 CONSCIOUS SEDATION REPORT DATE OF SERVICE: September 25, 2022 BRIEF HISTORY OF PRESENT ILLNESS: The patient is a 77-year-old male who presented to [facility] for an elective outpatient cardioversion due to underlying atrial fibrillation. His last surface echocardiogram demonstrated an ejection fraction of approximately 55%. The patient is systemically anticoagulated on Eliquis. He did undergo a prior cardioversion in July 2020, for which 40 mg of propofol was utilized, to achieve an appropriate level of sedation. The patient does have a known history of obstructive sleep apnea, for which he reports compliance with the use of nocturnal CPAP therapy. PHYSICAL EXAMINATION: VITAL SIGNS: Reviewed and were acceptable. GENERAL: The patient is a male, in no apparent distress, speaking in full sentences. HEENT: Normocephalic, atraumatic. Mucous membranes are moist and pink. Good mouth opening noted. Trachea is midline. Good neck mobility. CHEST: S1, S2 irregularly irregular. No murmurs, rubs or gallops were noted. LUNGS: Clear to auscultation bilaterally without appreciable wheezes, rales or rhonchi. ABDOMEN: Soft, nontender, nondistended. Positive bowel sounds. EXTREMITIES: There is no clubbing, cyanosis or edema. ASA Class: II DESCRIPTION OF PROCEDURE: After confirmation of informed consent, the patient's anesthesia plan was reviewed in detail. Propofol was chosen. Risks and benefits were reviewed and the patient agreed to proceed. At 1205, the patient was given 40 of propofol. The patient achieved an appropriate level of sedation and was given a 200 joule synchronized cardioversion by Dr. Raygoza at the bedside. This was successful in achieving normal sinus rhythm. The patient was monitored until 1217, at which time he reached his baseline mental status and function. The patient tolerated the procedure well. COMPLICATIONS: None ESTIMATED BLOOD LOSS: None RECOMMENDATIONS: Okay to recover in usual fashion. Procedures Pulmonary 9xxxx: [id number] Con Sedation
--- NOTE | 2022-09-25 14:14 | OP.PCM_ITS ---
Operative Report Date of Procedure: 09/25/22 DC cardioversion. Atrial flutter. 77-year-old man with a history of permanent pacemaker implantation and paroxysmal atrial flutter. Patient was noted to be in recent onset atrial flutter. He had been anticoagulated therapeutically and continuously. Patient was brought into the noninvasive lab and after informed consent was obtained patient was seen by Dr. Baron of the critical care division. Anterior-posterior pads were applied. The patient was administered 40 mg of intravenous propofol and 200 J of synchronized DC cardioversion energy were applied with prompt reversal to atrial paced rhythm. The pacemaker was interrogated by the device nurse and the above confirmed. The patient was also discussed with his primary draftsperson Dr. Tj Guzman and the plan was to continue the current medical therapy. If he reverts back into atrial fibrillation or flutter then we may consider amiodarone 200 mg twice a day for 2 weeks and then 200 mg daily. Patient was also advised to continue anticoagulation with no interruption. It was felt that there was no immediate reason to put him on amiodarone or flecainide at this particular time. Conclusion: Successful DC cardioversion from atrial fibrillation/flutter to sinus rhythm.
== END 2022-09-25 13:45 | disposition home or self-care (01) ==
PROVIDERS: PCP Student in an Organized Health Care Education/Training Program; Referring Provider Internal Medicine Cardiovascular Disease; Visit Provider Internal Medicine Cardiovascular Disease
DX: I48.0 Paroxysmal atrial fibrillation (principal); I50.22 Chronic systolic (congestive) heart failure; I42.8 Other cardiomyopathies; I13.0 Hypertensive heart and chronic kidney disease with heart failure and stage 1 through stage 4 chronic kidney disease, or unspecified chronic kidney disease; I48.92 Unspecified atrial flutter; I47.1 Supraventricular tachycardia; N18.9 Chronic kidney disease, unspecified; E78.5 Hyperlipidemia, unspecified; I35.0 Nonrheumatic aortic (valve) stenosis; Z79.01 Long term (current) use of anticoagulants; Z79.899 Other long term (current) drug therapy; Z95.0 Presence of cardiac pacemaker
CPT/HCPCS: 36415; 80048; 92960; 93005; J7040

== ENCOUNTER → 2023-03-18 | Outpatient (CLI) | payer OTHER, SELFPAY ==
--- NOTE | 2023-03-18 15:07 | ECHOD_ITS ---
Reason For Study: Aortic Stenosis Procedure This was a 2D Doppler, Color Flow transthoracic echocardiogram. Exam performed in department. Left Ventricle Normal LV size. Mild concentric left ventricular hypertrophy. Left ventricular systolic function is normal. The estimated ejection fraction is 55 %. Stage 1 diastolic dysfunction. No regional wall motion abnormalities noted. Apical wall motion abnormality may reflect pacemaker activation. Right Ventricle Normal RV size. ICD or pacer leads identified within the right ventricle. Normal systolic function. Atria The left atrium is mildly enlarged. The right atrium is mildly enlarged. Mitral Valve Normal mitral valve. Mild (1+) eccentric mitral valve insufficiency. Tricuspid Valve Normal tricuspid valve. Mild tricuspid valve insufficiency. Pulmonary artery systolic pressure is 28 mmHg. Aortic Valve Trisinus/trileaflet aortic valve. Mild focal aortic valve calcification. Trivial eccentric aortic valve insufficiency. Pulmonic Valve Normal pulmonic valve. Great Vessels Normal aortic root. The pulmonary artery is normal size. Normal inferior vena cava. Pericardium/Pleural No pericardial effusion. MMode/2D Measurements & Calculations LVIDd: 4.5 cm IVSd: 1.2 cm LVOT diam: 2.0 cm LVIDs: 3.3 cm LVPWd: 1.4 cm LVOT area: 3.2 cm2 FS: 27.9 % LA dimension: 4.9 cm LAV(MOD-bp): 86.5 ml Aortic Valve Planimetry: 1.8 cm2 LAV(MOD-bp) Indexed: 42.3 ml/m2 LAV(MOD-sp2): 88.7 ml LAV(MOD-sp4): 78.5 ml LA A4 area: 24.9 cm2 RA A4 area: 22.0 cm2 Time Measurements MV dec time: 0.16 sec Doppler Measurements & Calculations MV E max saul: 102.3 cm/sec Lat Peak E' Saul: 13.7 cm/sec Med Peak E' Saul: 8.5 cm/sec MV A max saul: 52.6 cm/sec E/E' lat: 7.4 E/E' med: 12.0 MV E/A: 1.9 MV V2 max: 108.0 cm/sec MV P1/2t max saul: 108.0 cm/sec Ao V2 max: 182.8 cm/sec MV max P.7 mmHg MV P1/2t: 59.3 msec Ao max P.4 mmHg MV V2 mean: 55.5 cm/sec MV dec slope: 533.6 cm/sec2 Ao V2 mean: 132.8 cm/sec MV mean P.6 mmHg Ao mean P.1 mmHg MV V2 VTI: 36.8 cm MVA(P1/2t): 3.7 cm2 Ao V2 VTI: 41.1 cm MVA(VTI): 2.1 cm2 AV (velocity ratio): 0.59 CHEMA(I,D): 1.9 cm2 CHEMA(V,D): 1.9 cm2 AI max saul: 392.8 cm/sec LV V1 max: 109.4 cm/sec SV(LVOT): 77.3 ml AI max P.9 mmHg LV V1 max P.8 mmHg LV V1 mean P.8 mmHg AI dec slope: 115.5 cm/sec2 LV V1 mean: 76.8 cm/sec AI P1/2t: 996.1 msec LV V1 VTI: 24.1 cm PA V2 max: 118.1 cm/sec TR max saul: 252.3 cm/sec PA V2 mean: 75.0 cm/sec TR max P.5 mmHg ECHO/Echo Complete Interpretation Summary Normal LV size. Mild concentric left ventricular hypertrophy. Left ventricular systolic function is normal. The estimated ejection fraction is 55 %. Mild focal aortic valve calcification. Trivial eccentric aortic valve insufficiency. Pulmonary artery systolic pressure is 28 mmHg. Stage 1 diastolic dysfunction. Compared to previous study, the left ventricular systolic function is the same. . Ordering Physician: Refugio Raygoza Referring Physician: Jack Hameed Performed By: Lawrence Gross RCS
== END | disposition home or self-care (01) ==
LOC: CVS 14:54
PROVIDERS: PCP Student in an Organized Health Care Education/Training Program; Referring Provider Internal Medicine Cardiovascular Disease; Visit Provider Internal Medicine Cardiovascular Disease
DX: I35.0 Nonrheumatic aortic (valve) stenosis (principal); Z95.0 Presence of cardiac pacemaker
CPT/HCPCS: 93306

== ENCOUNTER 2023-06-17 08:00 | Outpatient (RCR) | payer OTHER, SELFPAY ==
--- NOTE | 2023-05-17 16:45 | HP.PTEVAL_ITS ---
Patient's Visit Information Visit Information Visit Information: ADELAIDA ROJAS is a 77 year old M referred to Physical Therapy by Dr. Cristian Perez DO with a diagnosis of Back Pain. Date of Evaluation: 05/17/23 Physical Therapist: Ariella Telles DPT Visit Plan Frequency: 2x /Week Duration: 4 Weeks Plan: Focus on core strength/stabilization Subjective Subjective: Left shoulder fell playing tennis a few weeks ago and it wakes him up and it aches-and his back is stiff when he wakes up in the AM0 he has had some chiro (clicker and ultrasound) and massage- which helped but its still has some soreness. The pain in the shoulder is on the outside- and achy- in the deltoid- fell right on it. Did not see chiro or anything for it- still playing tennis for it. Right hand dominate. Throw the ball up with the left. Has had back issues previously but he has never had surgery- carries a backpack on the right side. 4-5 months- it has gotten better- with chiro and massage- just not all the way better. Does not radiate down- dull and achy. No N/T- does have some scoliosis- does have stiff and sorness when he sits for too long. Rubbing it and massage gun make it feel better. Sore when he gets up in the AM- if he does the reformer- SKTC and piriformis stretch. Back sleeper- stiffer the bed the better. Objective Objective: Posture: FH, RS- can correct but does not maintain- does correct multiple times while sitting on plinth without verbal cues Observation: scoliotic curve of the spine ROM: flexion: hands to knees- secondary to tight hamstrings, extn: decreased by 50%, SB: WFL, Rotation: WFL- Hip/Knee/ankle: WNL. Strength: Ankle/Knee: 5/5, Hip: Right: Flexion: 4+/5, Extn: 4-/5, Abd: 4-/5, Add: 4+/5, IR/ER: 4/5, Left: Flexion: 4+/5, Extn: 4/5, Abd: 4/5, Add: 4+/5, IR/ER: 4/5 Core: fair minus. Flexibility: HS: severe, gastroc: moderate. Palpation: tender along right paraspinals. Sensation/Reflex: wnl. Balance/Special Test Scores Oswestry Low Back Score: 1 Goals Goal 1:: Patient will be I with HEP and progression Goal Time Frame: 4-6 Weeks Goal 2:: Patient will report no back pain for 1 week Goal Time Frame: 4-6 Weeks Goal 3:: Patient will maintain proper posture t/o tx session to demo increased core s/s Goal Time Frame: 4-6 Weeks Goal 4:: Patient will report 80% improvement Goal Time Frame: 4-6 Weeks Rehabilitation Potential Physical Therapy Diagnosis: Patient presents with hypomobility- he has decreased core strength/stabilization, flex and muscular endurance leading to poor posture and increased pain with ADL's. Rehabilitation Potential: Good Anticipated Interventions Patient/Client Instruction: Educate patient on: Benefits of Fitness Program Therapeutic Exercise to Include: Strength training, Endurance training, Balance training, Coordination, Agility training, Body mechanics, Postural training, Flexibilty training, Gait and locomotor training, Neuromotor development, Passive ROM, Active ROM, Dynamic Lumbar Stabilization and Scapular Strength/Stabilization Text: Thank you for the opportunity to evaluate your patient. For Medicare and Medicare HMO plans, please review the plan of care and approve it. It will need to be FAXED BACK to us at [phone] for Medicare purposes. For Medicare only, by signing this I certify the plan of care. Please let me know if there are questions or concerns regarding this plan of care. Physician Signature:___ Date:
--- NOTE | 2023-11-09 16:46 | HP.PT.NRP ---
Patient Information Patient Information: ADELAIDA ROJAS was seen in my office for initial evaluation on 05/17/23. The following Plan of Care was established for this patient: POC Established Initial Frequency: 2x /Week Initial Duration: 4 Weeks Anticipated Interventions Patient/Client Instruction: Educate patient on: Benefits of Fitness Program Therapeutic Exercise to Include: Strength training, Endurance training, Balance training, Coordination, Agility training, Body mechanics, Postural training, Flexibilty training, Gait and locomotor training, Neuromotor development, Passive ROM, Active ROM, Dynamic Lumbar Stabilization and Scapular Strength/Stabilization Last Seen Last Seen: This patient was last seen in our office . Pertinent comments regarding their Physical therapy will appear below: Patient will continue to perform home exercise program and call if questions- appropriate to d/c chart. At this point I will be discontinuing this patient from physical therapy. I would be happy to see this patient again in the future if found appropriate by the physician. Thank you! Ariella Telles, DPT Balance/Gait/Functional tests Balance/Special Test Scores Oswestry Low Back Score: 1
== END 2023-06-17 19:00 | disposition home or self-care (01) ==
LOC: PT 08:00
PROVIDERS: PCP Student in an Organized Health Care Education/Training Program; Referring Provider Student in an Organized Health Care Education/Training Program; Visit Provider Student in an Organized Health Care Education/Training Program
DX: S46.011D Strain of muscle(s) and tendon(s) of the rotator cuff of right shoulder, subsequent encounter (principal); M25.511 Pain in right shoulder; M54.50 Low back pain, unspecified
CPT/HCPCS: 97110; 97162

== ENCOUNTER → 2024-01-04 | Outpatient (CLI) | payer OTHER, SELFPAY ==
--- NOTE | 2024-01-04 18:20 | STRESSREP ---
Stress Test Report Pharmacologic myocardial perfusion stress test. 78-year-old man with a history of atrial flutter Resting EKG demonstrates atrial flutter with a rate of 60 bpm and ventricular paced beats. Resting blood pressure is 160/94 mmHg. 0.4 mg of regadenoson was infused per usual protocol followed by rapid intravenous saline flush injection. Continuous EKG monitoring was performed. The maximum heart rate was 64 bpm which was 45 %of max impacted heart rate the maximum workload was 1 metabolic equivalent. At rest there were no ST or T wave changes noted to suggest ischemia and at peak infusion nonspecific ST changes were noted which did not meet the criteria for ischemia. No clinical angina is noted. The final blood pressure was 142/82 mmHg. Myocardial perfusion protocol. 14.1 mCi of technetium 99m sestamibi was injected at rest. 0.4 mg of regadenoson was infused per usual protocol. At peak infusion 44.5 mCi of technetium 99m sestamibi was injected stress images were obtained stress and rest images were reconstructed and compared in the short axis vertical long and horizontal long axis. Gated images were also obtained. Perfusion SPECT analysis: Review of the stress images demonstrate normal uptake of tracer noted in all areas of the myocardium. Mild apical pacing abnormality noted. The resting images similar demonstrated normal uptake of tracer noted in all areas of the myocardium. Mild apical pacing abnormality noted. No areas of reversibility are noted to suggest ischemia and no previous infarct is noted. Gated SPECT analysis: The gated ejection fraction is 68%. Conclusion: Normal pharmacologic myocardial perfusion stress test. Preserved ejection fraction.
== END | disposition home or self-care (01) ==
LOC: CVS 06:10
PROVIDERS: PCP Student in an Organized Health Care Education/Training Program; Referring Provider Internal Medicine Cardiovascular Disease; Visit Provider Internal Medicine Cardiovascular Disease
DX: I35.0 Nonrheumatic aortic (valve) stenosis (principal); I50.20 Unspecified systolic (congestive) heart failure; I49.5 Sick sinus syndrome; I48.92 Unspecified atrial flutter; I48.0 Paroxysmal atrial fibrillation; I42.8 Other cardiomyopathies; I44.1 Atrioventricular block, second degree; I45.10 Unspecified right bundle-branch block; E78.00 Pure hypercholesterolemia, unspecified; I65.22 Occlusion and stenosis of left carotid artery; Z95.0 Presence of cardiac pacemaker
CPT/HCPCS: 78452; 93017; A9500; A4216; J2785

== ENCOUNTER 2025-03-05 12:30 | Outpatient (RCR) | payer OTHER, SELFPAY ==
--- NOTE | 2025-02-28 08:37 | HP.PTEVAL_ITS ---
Patient's Visit Information Visit Information Visit Information: ADELAIDA ROJAS is a 79 year old M referred to Physical Therapy by Dr. Allen Saravia MD with a diagnosis of Cervicalgia. Date of Evaluation: 02/28/25 Physical Therapist: Jeison Sesay, PT, ATC Visit Plan Frequency: 1x/Week Duration: 4-6 Weeks Plan: Trialed c/s traction today 16/8#, 30 sec/10 sec x 10 min. Assess benefit of traction next session. Add DTR and mobilizations to cervical spine next session. Subjective Subjective: Pt reports he has had tingling in his neck for approximately 3 weeks. Pt reports his pain had an insidious onset in nature. Pt reports the tingling is located on and surrounding his L ear. Pt reports the muscles in his neck are very tight as well. Pt notes he has had massages in the past which do help. Pt notes there really isnt pain, its just more of an annoyance. Pt reports he tends to notice increased symptoms tend to occur when he is using improper posture. Pt notes postural correction will help to ease his symptoms. Pt reports no sleep difficulty at this time secondary to his symptoms. Pt notes he helps to prepare for bed by using a warm compress before he falls asleep. 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 1/10 pain even at its worst. Pain cervical spine: Pain Intensity (Out of 10): 0 Pain Intensity Range: 1 Objective Objective: Neuro: B UE sensation is WNL to light touch. Palpation: Pt has significant guarding throughout cervical spine. MMT: B UE's are WFL and equal throughout ROM: Pt is moderately limited throughout cervical spine, most notably with extension, retraction, and B SB Repeated movements: RPIS 10x2 NE. RRIS 10x2 NE. Special testing: No pos tests this date Balance/Special Test Scores Oswestry Neck Score: 0 Goals Goal 1:: Decrease the frequency and intensity of L ear tingling x 50% to aid with IADL's Goal Time Frame: 2-4 Weeks Goal 2:: I with HEP Goal Time Frame: 2-4 Weeks Goal 3:: Increase C/S ROM x 1 grade in 2 weeks to aid with IADL's Goal Time Frame: 2-4 Weeks Rehabilitation Potential Physical Therapy Diagnosis: Pt has tingling and numbness surrounding his L ear from degenerative changes in the C/S Rehabilitation Potential: Good Anticipated Interventions Patient/Client Instruction: Educate patient on: Condition and Plan of Care For the Purpose of:: To improve self management Manual Therapy Techniques to Include: Mobilization and Soft tissue mobilization For the Purpose of:: To decrease pain and To increase ROM Text: Thank you for the opportunity to evaluate your patient. For Medicare and Medicare HMO plans, please review the plan of care and approve it. It will need to be FAXED BACK to us at [phone] for Medicare purposes. For Medicare only, by signing this I certify the plan of care. Please let me know if there are questions or concerns regarding this plan of care. Physician Signatur e: Date:
--- NOTE | 2025-06-05 11:40 | HP.PT.NRP ---
Patient Information Patient Information: ADELAIDA ROJAS was seen in my office for initial evaluation on 02/28/25. The following Plan of Care was established for this patient: POC Established Initial Frequency: 1x/Week Initial Duration: 4-6 Weeks Anticipated Interventions Patient/Client Instruction: Educate patient on: Condition and Plan of Care For the Purpose of:: To improve self management Manual Therapy Techniques to Include: Mobilization and Soft tissue mobilization For the Purpose of:: To decrease pain and To increase ROM Last Seen Last Seen: This patient was last seen in our office . Pertinent comments regarding their Physical therapy will appear below: Pt has not returned for greater than 30 days and is discontinued at this time. At this point I will be discontinuing this patient from physical therapy. I would be happy to see this patient again in the future if found appropriate by the physician. Thank you! Jeison Sesay, PT, ATC Balance/Gait/Functional tests Balance/Special Test Scores Oswestry Neck Score: 0
== END 2025-03-05 19:00 | disposition home or self-care (01) ==
LOC: PT 12:30
PROVIDERS: PCP Student in an Organized Health Care Education/Training Program; Referring Provider Orthopaedic Surgery; Visit Provider Orthopaedic Surgery
DX: M54.2 Cervicalgia (principal)
CPT/HCPCS: 97012; 97161

== ENCOUNTER → 2025-06-18 | Outpatient (CLI) | payer OTHER, SELFPAY ==
--- NOTE | 2025-06-18 08:55 | ECHOD_ITS ---
Reason For Study Reason For Study: A. fib Procedure This was a 2D Doppler, Color Flow transthoracic echocardiogram. Exam performed in department. Left Ventricle Normal LV size. Mild concentric left ventricular hypertrophy. The left ventricular ejection fraction is 55 %. No regional wall motion abnormalities noted. Right Ventricle Normal RV size. ICD or pacer leads identified within the right ventricle. Normal systolic function. Atria The left atrium is mildly enlarged. The right atrium is moderately enlarged. ICD or pacer leads identified within the right atrium. Mitral Valve Normal mitral valve. Trivial eccentric mitral valve insufficiency. Tricuspid Valve Normal tricuspid valve. Mild (1+) tricuspid valve insufficiency. Pulmonary artery systolic pressure is 28 mmHg. Aortic Valve Trisinus/trileaflet aortic valve. Mild focal aortic valve calcification. Peak aortic valve gradient 33 mmHg. Mean aortic valve gradient 19 mmHg. Mild aortic stenosis. Trivial aortic valve insufficiency. Pulmonic Valve Normal pulmonic valve. Great Vessels Normal aortic root. The pulmonary artery is normal size. Inferior vena cava collapse with respiration. Pericardium/Pleural Trivial pericardial effusion. MMode/2D Measurements & Calculations LVIDd: 4.4 cm IVSd: 1.4 cm LVOT diam: 2.0 cm LVIDs: 2.5 cm LVPWd: 1.3 cm LVOT area: 3.1 cm2 RVDd: 4.0 cm FS: 44.0 % Ao root diam: 3.3 cm LAV(MOD-bp): 65.1 ml LVAd ap4: 23.7 cm2 LAV(MOD-bp) Indexed: 32.7 ml/m2 LVLd ap4: 7.2 cm LAV(MOD-sp2): 58.1 ml EDV(MOD-sp4): 65.7 ml LAV(MOD-sp4): 70.8 ml EDV(sp4-el): 66.3 ml LVAs ap4: 15.9 cm2 LVLs ap4: 6.9 cm ESV(MOD-sp4): 31.0 ml ESV(sp4-el): 31.3 ml EF(MOD-sp4): 52.8 % EF(sp4-el): 52.8 % LVAd ap2: 25.2 cm2 SV(MOD-sp4): 34.7 ml SV(MOD-sp2): 38.1 ml LVLd ap2: 7.5 cm SI(MOD-sp4): 17.4 ml/m2 SI(MOD-sp2): 19.1 ml/m2 EDV(MOD-sp2): 70.5 ml EDV(sp2-el): 72.0 ml LVAs ap2: 16.3 cm2 LVLs ap2: 6.9 cm ESV(MOD-sp2): 32.4 ml ESV(sp2-el): 32.9 ml EF(MOD-sp2): 54.0 % SV(sp4-el): 35.0 ml LA dimension(2D): 5.0 cm LA A4 area: 23.0 cm2 RA A4 area: 26.8 cm2 TAPSE: 1.9 cm Time Measurements MV dec time: 0.17 sec Doppler Measurements & Calculations MV E max saul: 95.5 cm/sec Lat Peak E' Saul: 9.3 cm/sec Med Peak E' Saul: 5.5 cm/sec MV A max saul: 56.9 cm/sec E/E' lat: 10.3 E/E' med: 17.3 MV E/A: 1.7 Ao V2 max: 288.4 cm/sec AI max saul: 415.6 cm/sec MV dec slope: 557.0 cm/sec2 Ao max P.3 mmHg AI max P.1 mmHg Ao V2 mean: 204.6 cm/sec Ao mean P.6 mmHg AI dec slope: 167.7 cm/sec2 Ao V2 VTI: 63.2 cm AI P1/2t: 725.8 msec AV (velocity ratio): 0.52 CHEMA(I,D): 1.6 cm2 CHEMA(V,D): 1.6 cm2 LV V1 max: 143.6 cm/sec SV(LVOT): 103.8 ml PA V2 max: 130.9 cm/sec LV V1 max P.3 mmHg LV V1 mean P.9 mmHg LV V1 mean: 105.0 cm/sec LV V1 VTI: 33.0 cm TR max saul: 249.0 cm/sec TR max P.9 mmHg ECHO/Echo Complete Interpretation Summary Normal LV size. The left ventricular ejection fraction is 55 %. Mild concentric left ventricular hypertrophy. The left atrium is mildly enlarged. The right atrium is moderately enlarged. ICD or pacer leads identified within the right atrium Mild focal aortic valve calcification. Mild aortic stenosis. Compared to the previous echocardiogram the left ventricular function is essent ially unchanged the aortic valve gradients are mildly increased. Ordering Physician: Refugio Raygoza Referring Physician: Jack Hameed Performed By: Yuliya Flowers RDCS
== END | disposition home or self-care (01) ==
LOC: CVS 08:51
PROVIDERS: PCP Student in an Organized Health Care Education/Training Program; Referring Provider Internal Medicine Cardiovascular Disease; Visit Provider Internal Medicine Cardiovascular Disease
DX: I48.91 Unspecified atrial fibrillation (principal); I48.92 Unspecified atrial flutter; Z95.0 Presence of cardiac pacemaker
CPT/HCPCS: 93306